=== PATIENT | female | born 1965 | race Caucasian/White ===

== ENCOUNTER 2020-08-05 10:48 | Day surgery (SDC) | payer OTHER ==
[2020-07-16 10:16] VITALS: BMI 32.8
[2020-08-05] MEDS ORDERED: MIDAZOLAM HCL 2 MG/2 ML SINGLE DOSE VIAL ONE ×3 (11:09→14:09)
[2020-08-05] MEDS ORDERED: PROPOFOL 20 ML ONE (11:09)
[2020-08-05] MEDS ORDERED: DESFLURANE GAS 240 ML BOTTLE IH ONE (11:22)
[2020-08-05] MEDS ORDERED: ROPIVACAINE HCL 0.5% 30ML VIAL ONE (11:24)
[2020-08-05] MEDS ORDERED: EPINEPHrine 1:1,000 1 MG/1 ML - 30ML VIAL (INJECTION) ONE (11:36)
[2020-08-05] MEDS ORDERED: ceFAZolin SODIUM 1 GM VIAL ONE (13:23)
[2020-08-05 15:46] VITALS: PULSE 78
[2020-08-05 16:26] VITALS: BP 110/81; TEMP 98
--- NOTE | 2020-08-05 17:56 | OP ---
DATE OF OPERATION: 08/05/2020 PREOPERATIVE DIAGNOSIS: Left shoulder rotator cuff tear. POSTOPERATIVE DIAGNOSIS: Left shoulder rotator cuff tear and subacromial impingement. OPERATIVE PROCEDURE: 1. Left shoulder operative arthroscopy with repair of rotator cuff. 2. Left shoulder arthroscopic subacromial decompression with anterior inferior acromioplasty. SURGEON: Franklin Pete MD. REAL ESTATE INTERN: [place]. ANESTHESIA: Regional. COMPLICATIONS: None. ESTIMATED BLOOD LOSS: Minimal. INDICATION FOR PROCEDURE: The patient presented with the above findings, indicated for operative treatment. Risks, benefits, and alternatives were discussed with her at length. Proper informed consent was obtained. DESCRIPTION OF PROCEDURE: After proper identification of the patient and correct operative site, regional anesthesia was given. The patient was brought to the operating room where sedation was also given, and she was placed in the beach chair position with all pressure points well padded and in-line cervical positioning maintained throughout the procedure. Left upper extremity was prepped and draped in the usual sterile fashion. Arthroscopy was performed through posterior, lateral, and anterior portals. All portals were made with skin incision only. Glenohumeral joint was observed and found to have some fraying of the subscapularis which was debrided, but there was no full thickness tear. Biceps tendon was intact. The labrum was intact with mild fraying, which was debrided. Rotator cuff had a full thickness anterior shaped tear measuring about 2 cm anterior-posterior dimensions with about 1 cm retraction . This was debrided along with the greater tuberosity. Arthroscope was then introduced and placed in the subacromial space, where moderate bursitis was noted and the anterior inferior subacromial spur was noted. This was debrided with mechanical shaver, ArthroWand, and an anterior inferior acromioplasty is performed. The rotator cuff was then mobilized and repaired using Arthrex speed bridge type double row repair. Two Swivelocks were placed medially at the articular margin. Sutures were passed through the rotator cuff and then karl-crossed, and secured laterally with 2 further Swivelock anchors. This provided secure, stable repair of the rotator cuff, although her bone quality is very poor, the anchors did have good purchase. Shoulder was taken through range of motion, and there was no tension on the repair, and no pullout of any anchors. Wounds were irrigated and repaired with 3-0 nylon sutures. Sterile dressings were applied. Sling was placed. The patient was reversed from anesthesia and brought to the recovery room in stable condition. She tolerated the procedure well. Thien Smalls, the assistant golf coach, was integral throughout the procedure. He was necessary for positioning the arms during placement of anchors as well as operating the arthroscope while anchors were being placed and the repair performed. This could not have been performed without a skilled operative assistant golf coach. Parviz [id number]
== END 2020-08-05 16:25 | disposition home or self-care (01) ==
LOC: FASU 10:48
PROVIDERS: ATTEND Orthopaedic Surgery Hand Surgery
PROC: 0LQ24ZZ Repair Left Shoulder Tendon, Percutaneous Endoscopic Approach (ICD-10-PCS; principal; 2020-08-05 13:40)
PROC: 0RNK4ZZ Release Left Shoulder Joint, Percutaneous Endoscopic Approach (ICD-10-PCS; 2020-08-05 13:40)
DX: M75.122 Complete rotator cuff tear or rupture of left shoulder, not specified as traumatic (principal); M75.42 Impingement syndrome of left shoulder
CPT/HCPCS: 82962; 94760